=== PATIENT | male | born 1965 | race Caucasian/White ===

== ENCOUNTER → 2024-01-26 | Outpatient (CLI) | payer SELFPAY ==
[~2024-01-26] MED LIST: CEPH500B PO
== END | disposition home or self-care (01) ==
LOC: OIH 09:04
PROVIDERS: ATTEND Internal Medicine
DX: M17.12 Unilateral primary osteoarthritis, left knee (principal); M47.26 Other spondylosis with radiculopathy, lumbar region; M25.462 Effusion, left knee; M79.89 Other specified soft tissue disorders
CPT/HCPCS: 72100; 73562

== ENCOUNTER 2024-01-30 19:14 | Emergency (ER) | payer OTHER ==
[~2024-01-30] VITALS: Ht 190.5 cm; Wt 143.8 kg
[2024-01-30] MEDS ORDERED: CEPH500B PO (20:50)
[2024-01-30 22:48] VITALS: BP 152/71; PULSE 82; RESP 18; O2SAT 97
== END 2024-01-30 23:01 | disposition home or self-care (01) ==
LOC: EDH 19:14
DX: M66.0 Rupture of popliteal cyst (principal); M25.562 Pain in left knee
CPT/HCPCS: 29505; 73562; 76882